=== PATIENT | male | born 1970 | race Caucasian/White ===

== ENCOUNTER 2017-11-15 10:22 | Emergency (ER) | payer BC ==
[~2017-11-15] VITALS: Ht 172.7 cm; Wt 77.1 kg
[2017-11-15] MEDS ORDERED: LIDOCAINE 2% 20 ML VIAL. IJ ONE (11:00)
[2017-11-15] MEDS ORDERED: DIPHTH,PERTUSS(ACELL),TET TOX 0.5 ML DISP.SYRIN. VAX IM ONE (11:15)
[2017-11-15] MEDS ORDERED: NEOMY/BACITR/POLYMYXIN OINT PACKET. TP ONE (11:27)
--- NOTE | 2017-11-15 11:32 | PHYS DOC ---
Past History Past Medical History: Arthritis, CAD, Other Past Surgical History: Other Alcohol Use: Rarely Drug Use: None Adult General Chief Complaint Chief Complaint: LACERATION/AVULSION HPI HPI 43-year-old male presents with left wrist laceration. The patient was working on [employer] on a job site when he had a scraper slip and lacerated his left lateral wrist. He can tell that the cut was deep, likely requiring suture so he came to the ER. He did apply direct pressure and was able to control bleeding prior to arrival. He denies any loss of sensation or movement. His range of motion is normal. The patient has never had an injury to this hand before. His tetanus is not up-to-date. He denies fever or chills. He has no other injuries. Review of Systems Review of Systems Constitutional: Denies fever or chills [] Eyes: Denies change in visual acuity, redness, or eye pain [] HENT: Denies nasal congestion or sore throat [] Respiratory: Denies cough or shortness of breath [] Cardiovascular: No additional information not addressed in HPI [] GI: Denies abdominal pain, nausea, vomiting, bloody stools or diarrhea [] : Denies dysuria or hematuria [] Musculoskeletal: Denies back pain or joint pain [] Integument: 4cm laceration of left wrist [] Neurologic: Denies headache, focal weakness or sensory changes [] Endocrine: Denies polyuria or polydipsia [] All other systems were reviewed and found to be within normal limits, except as documented in this note. Current Medications Current Medications Current Medications Medications (Trade) Dose Ordered Sig/Jeanette Start Time Stop Time Status Last Admin Dose Admin Diphtheria/ Tetanus/Acell Pertussis (Boostrix) 0.5 ml ONCE ONCE 11/15/17 11:15 11/15/17 11:16 DC 11/15/17 11:04 0.5 ML Lidocaine HCl 20 ml 1X ONCE 11/15/17 11:00 11/15/17 11:01 DC 11/15/17 11:01 20 ML Allergies Allergies Allergies Coded Allergies Type Severity Reaction Last Updated Verified No Known Drug Allergies 06/02/16 No Physical Exam Physical Exam Constitutional: Well developed, well nourished, no acute distress, non-toxic appearance. [] HENT: Normocephalic, atraumatic, bilateral external ears normal, oropharynx moist, no oral exudates, nose normal. [] Eyes: PERRLA, EOMI, conjunctiva normal, no discharge. [] Neck: Normal range of motion, no tenderness, supple, no stridor. [] Cardiovascular:Heart rate regular rhythm, no murmur [] Lungs & Thorax: Bilateral breath sounds clear to auscultation [] Abdomen: Bowel sounds normal, soft, no tenderness, no masses, no pulsatile masses. [] Skin: Worsening or R laceration of the wrist. Laceration goes through the skin and subcutaneous fat. There does not appear to be injury to the tendons or muscle. No arterial bleeding.[] Back: No tenderness, no CVA tenderness. [] Extremities: No tenderness, no cyanosis, no clubbing, ROM intact, no edema. Neurovascularly intact bilateral upper extremities.[] Neurologic: Alert and oriented X 3, normal motor function, normal sensory function, no focal deficits noted. [] Psychologic: Affect normal, judgement normal, mood normal. [] Current Patient Data Vital Signs Vital Signs Date Time Temp Pulse Resp B/P (MAP) Pulse Ox O2 Delivery O2 Flow Rate FiO2 11/15/17 10:22 98.0 72 95 EKG EKG [] Radiology/Procedures Radiology/Procedures [] Course & Med Decision Making Course & Med Decision Making Pertinent Labs and Imaging studies reviewed. (See chart for details) The patient's laceration only went through the skin is subcutaneous tissues. Do not appear to be any involvement of the muscle or tendons. No foreign bodies were seen. I was able to repair the laceration with sutures. See note below for more details. Patient in no complications. We gave him his tetanus shot. He is stable for discharge at this time. He will return in 7 days for suture removal. Respirations repair: Patient had a 4 cm linear laceration of the left lateral wrist. Verbal consent was obtained from the patient for suture repair. A timeout was performed to identify the proper location procedure. There did not appear to be involvement of the artery, nerve, tendons, or muscle. His range of motion and vascular status was intact. I anesthetized the area with 2% lidocaine, a total of 6 mL. After good anesthesia was achieved, the wound was irrigated with high-pressure saline wash. No foreign bodies were found. I then repaired the wound with 6 3-0 Ethilon sutures. There was good skin approximation. Bleeding was controlled. There were no complications. The patient tolerated the procedure well. Antibiotic ointment and a clean dressing were applied to the wound. [] Dragon Disclaimer Dragon Disclaimer This electronic medical record was generated, in whole or in part, using a voice recognition dictation system. Departure Departure: Referrals: LIDIA CABRERA MD (PCP) MARIA ANTONIA [place] DO Nov 15, 2017 11:32
[2017-11-15 11:40] VITALS: BP 136/92
== END 2017-11-15 11:35 | disposition home or self-care (01) ==
LOC: ER 10:22
DX: S61.512A Laceration without foreign body of left wrist, initial encounter (principal); I25.10 Atherosclerotic heart disease of native coronary artery without angina pectoris; M19.90 Unspecified osteoarthritis, unspecified site; W26.2XXA Contact with edge of stiff paper, initial encounter; Y93.89 Activity, other specified; Y92.89 Other specified places as the place of occurrence of the external cause; Y99.8 Other external cause status
CPT/HCPCS: 12002; 90471; 90715; 99283-25; J2001

== ENCOUNTER 2017-11-21 06:43 | Emergency (ER) | payer BC | END 2017-11-21 07:10 | disposition left against medical advice (07) | LOC: ER 06:43 | DX: S61.512D Laceration without foreign body of left wrist, subsequent encounter (principal); Z53.21 Procedure and treatment not carried out due to patient leaving prior to being seen by health care provider; X58.XXXD Exposure to other specified factors, subsequent encounter ==

== ENCOUNTER 2017-12-02 07:44 | Emergency (ER) | payer BC ==
[~2017-12-02] VITALS: Ht 180.3 cm; Wt 99.8 kg
[2017-12-02 08:10] VITALS: BP 129/96
--- NOTE | 2017-12-02 08:12 | PHYS DOC ---
Past History Past Medical History: Arthritis, CAD Past Surgical History: No Surgical History Alcohol Use: None Drug Use: None Adult General Chief Complaint Chief Complaint: WOUND RECHECK/SUTURE REMOVAL Allergies Allergies Allergies Coded Allergies Type Severity Reaction Last Updated Verified No Known Drug Allergies 06/02/16 No EKG EKG [] Radiology/Procedures Radiology/Procedures [] Course & Med Decision Making Course & Med Decision Making 47-year-old male presenting for suture removal. Patient's wound is healing well. We will remove the sutures. Follow up with PCP as needed. Dragon Disclaimer Dragon Disclaimer This electronic medical record was generated, in whole or in part, using a voice recognition dictation system. Departure Departure: Impression: Primary Impression: Encounter for assessment of wound Additional Impression: Visit for suture removal Disposition: 01 HOME, SELF-CARE Condition: STABLE Referrals: LIDIA CABRERA MD (PCP) Patient Instructions: Suture Removal-Brief Problem Qualifiers KAYODE KING MD Dec 02, 2017 08:12
== END 2017-12-02 08:20 | disposition home or self-care (01) ==
LOC: ER 07:44
DX: S61.512D Laceration without foreign body of left wrist, subsequent encounter (principal); I25.10 Atherosclerotic heart disease of native coronary artery without angina pectoris; M19.90 Unspecified osteoarthritis, unspecified site; X58.XXXD Exposure to other specified factors, subsequent encounter
CPT/HCPCS: 99282

== ENCOUNTER 2018-01-13 18:58 | Emergency (ER) | payer BC ==
[~2018-01-13] VITALS: Ht 172.7 cm; Wt 99.8 kg
[2018-01-13] MEDS ORDERED: IV NORMAL SALINE 1,000ML 1,000 ML IV SCH (19:49)
[2018-01-13] MEDS ORDERED: CONTRAST GIVEN MC PRN (20:00)
[2018-01-13 20:13] LABS: BILIRUBIN,URINE NEG (NEG); CLARITY,URINE HAZY; COLOR,URINE YELLOW; GLUCOSE,URINE NEG (NEG)
[2018-01-13 20:14] LABS: AMORPHOUS SEDIMENT,UR PRESENT /HPF; BACTERIA,URINE 0 /HPF (0-FEW); NITRITE,URINE NEG (NEG); RBC,URINE 0 /HPF (0-2); UROBILINOGEN,URINE 0.2 mg/dL (0.2 mg/dL); WBC,URINE RARE /HPF (0-4)
[2018-01-13] MEDS ORDERED: KETOROLAC 30 MG/ML VIAL. IV ONE (20:15)
[2018-01-13] MEDS ORDERED: IOHEXOL 300 MG/ML 75 ML VIAL. IV ONE (20:15)
[2018-01-13] MEDS ORDERED: ONDANSETRON PF 4 MG/2 ML VIAL. IV ONE (20:15)
[2018-01-13 20:20] LABS: BASO % 1 % (0-3); EOS # 0.2 x10^3/uL (0.0-0.7); EOS % 2 % (0-3); HEMATOCRIT 43.3 % (39.0-53.0); HEMOGLOBIN 15.1 g/dL (13.0-17.5); LYMPH # 1.7 x10^3/uL (1.0-4.8); LYMPH % 18 % (24-48); MEAN CORPUSCULAR HEMOGLOBIN 32 pg (25-35); MEAN CORPUSCULAR HGB CONC 35 g/dL (31-37); MEAN CORPUSCULAR VOLUME 93 fL (79-100); MONO # 1.1 x10^3/uL (0.0-1.1); MONO % 11 % (0-9); NEUT # 6.4 x10^3uL (1.8-7.7); NEUT % 68 % (31-73); PLATELET COUNT 207 x10^3/uL (140-400); RED BLOOD COUNT 4.67 x10^6/uL (4.30-5.70); RED CELL DISTRIBUTION WIDTH 12.6 % (11.5-14.5); WHITE BLOOD COUNT 9.5 x10^3/uL (4.0-11.0)
[2018-01-13 20:33] LABS: ALBUMIN 3.8 g/dL (3.4-5.0); ALBUMIN/GLOBULIN RATIO 1.4 (1.0-1.7); CALCIUM 8.5 mg/dL (8.5-10.1); CREATININE 1.3 mg/dL (0.7-1.3); GFR 58.7; POTASSIUM 3.8 mmol/L (3.5-5.1); TOTAL BILIRUBIN 0.2 mg/dL (0.2-1.0); TOTAL PROTEIN 6.5 g/dL (6.4-8.2)
[2018-01-13 20:40] VITALS: BP 126/76
--- NOTE | 2018-01-13 20:52 | RAD ---
PQRS Compliance statement: One or more of the following individualized dose reduction techniques were utilized for this examination: 1. Automated exposure control. 2. Adjustment of the mA and/or kV according to patient size. 3. Use of iterative reconstruction technique. Indication:Omni 300 75cc: Severe left flank pain, history of AAA for 2 years, lymes disease TECHNIQUE: CT abdomen and pelvis without and with IV contrast with multiplanar reformats. COMPARISON: None FINDINGS: Heart is normal in size. No pericardial or pleural effusion. Clear lung bases. Liver, spleen, gallbladder, pancreas, adrenals within normal limits. No nephrolithiasis or hydronephrosis. 8mm exophytic nonenhancing lesion is seen in the medial aspect of the interpolar left kidney. No enlarged retroperitoneal or pelvic adenopathy. No free pelvic fluid or ascites. No bowel obstruction. Normal appendix. Urinary bladder within normal limits. The prostate and seminal vesicles show no large mass. There is no aneurysmal dilation of the abdominal aorta. The celiac axis, splenic artery, left gastric artery, common hepatic artery, SMA, bilateral renal arteries, ENEDELIA, bilateral common iliac arteries, bilateral external/internal iliac arteries, bilateral [employer] are patent. There is anterior wedge-shaped compression deformity of the L1 vertebral body with approximately loss of 75 percent of the body height with mild retropulsion in the spinal canal. Grade 1 anterolisthesis of L3 over L4. No suspicious bony lesion. Bilateral L3 pars defect. IMPRESSION: 1. No nephrolithiasis. 2. No abdominal aortic aneurysm. 3. Compression deformity of L1 vertebral body with approximately loss of anterior percent of the anterior body height with minimal retropulsion in the spinal canal of the posterior margin of the vertebral body. Electronically signed by: Ramon Cardenas DO (01/13/2018 8:49 PM) [facility]
[2018-01-13] MEDS ORDERED: MELO15TA23 PO (21:14)
[2018-01-13] MEDS ORDERED: ORPH-16 PO (21:14)
--- NOTE | 2018-01-13 21:14 | PHYS DOC ---
Past History Past Medical History: Arthritis, CAD, High Cholesterol, Hypertension, Other Past Medical History AAA being followed by imaging Past Surgical History: No Surgical History Alcohol Use: None Drug Use: None Adult General Chief Complaint Chief Complaint: FLANK PAIN HPI HPI Patient is a 47 year old [male who presents with left flank pain. This started 2 days ago when he was carrying a 50 pound bag of the period has not gotten any better with patient's narcotic pain medicine prescribed for other pain for conditions. Patient denies any loss of bowel or bladder control. Denies any fever. Denies any dysuria or hematuria. Patient is being followed for a known abdominal aortic aneurysm by imaging with his last imaging being in September 2017. Movement seems to make the discomfort worse. Holding still seems to make it better but does not fully resolve it. Reports the pain as being moderate to severe in intensity. Describes it as sharp discomfort. There is no radiation. Review of Systems Review of Systems Constitutional: Denies fever or chills [] Eyes: Denies change in visual acuity, redness, or eye pain [] HENT: Denies nasal congestion or sore throat [] Respiratory: Denies cough or shortness of breath [] Cardiovascular: No chest pain or palpitations[] GI: Denies abdominal pain, nausea, vomiting, bloody stools or diarrhea [] : Denies dysuria or hematuria [] Musculoskeletal: Denies back pain or joint pain [] Integument: Denies rash or skin lesions [] Neurologic: Denies headache, focal weakness or sensory changes [] Endocrine: Denies polyuria or polydipsia [] All other systems were reviewed and found to be within normal limits, except as documented in this note. Current Medications Current Medications Current Medications Medications (Trade) Dose Ordered Sig/Jeanette Start Time Stop Time Status Last Admin Dose Admin Fentanyl Citrate (Fentanyl 2ml Vial) 25 mcg 1X ONCE 01/13/18 20:15 01/13/18 20:16 DC 01/13/18 20:05 25 MCG Info (Do NOT chart on this entry -- for MONITORING) 1 each PRN DAILY PRN 01/13/18 20:00 01/15/18 19:59 Iohexol (Omnipaque 300 Mg/ml) 75 ml 1X ONCE 01/13/18 20:15 01/13/18 20:16 DC 01/13/18 20:18 75 ML Ketorolac Tromethamine (Toradol 30mg Vial) 30 mg 1X ONCE 01/13/18 20:15 01/13/18 20:16 DC 01/13/18 20:06 30 MG Ondansetron HCl (Zofran) 4 mg 1X ONCE 01/13/18 20:15 01/13/18 20:16 DC 01/13/18 20:05 4 MG Sodium Chloride 1,000 ml @ 1,000 mls/hr Q1H 01/13/18 19:49 01/13/18 20:48 DC 01/13/18 20:05 1,000 MLS/HR Allergies Allergies Allergies Coded Allergies Type Severity Reaction Last Updated Verified No Known Drug Allergies 06/02/16 No Physical Exam Physical Exam Constitutional: Well developed, well nourished, in moderate distress, non-toxic appearance. [] HENT: Normocephalic, atraumatic, bilateral external ears normal, oropharynx moist, no oral exudates, nose normal. [] Eyes: PERRLA, EOMI, conjunctiva normal, no discharge. [] Neck: Normal range of motion, no tenderness, supple, no stridor. [] Cardiovascular:Heart rate regular rhythm, no murmur [] Lungs & Thorax: Bilateral breath sounds clear to auscultation [] Abdomen: Bowel sounds normal, soft, no tenderness, no masses, no pulsatile masses. [] Skin: Warm, dry, no erythema, no rash. [] Back: No tenderness, left CVA and lower flank tenderness. No bruising. [] Extremities: No tenderness, no cyanosis, no clubbing, ROM intact, no edema. [] Neurologic: Alert and oriented X 3, normal motor function, normal sensory function, no focal deficits noted. Normal gait.[] Psychologic: Affect normal, judgement normal, mood normal. [] Current Patient Data Vital Signs Vital Signs Date Time Temp Pulse Resp B/P (MAP) Pulse Ox O2 Delivery O2 Flow Rate FiO2 01/13/18 20:05 18 97 Room Air 01/13/18 19:25 98.3 86 Lab Results Laboratory Tests Test 01/13/18 19:32 01/13/18 19:56 Urine Collection Type Unknown Urine Color Yellow Urine Clarity Hazy Urine pH 7.0 Urine Specific [place] 1.020 Urine Protein Neg (NEG-TRACE) Urine Glucose (UA) Neg mg/dL (NEG) Urine Ketones (Stick) Neg mg/dL (NEG) Urine Blood Neg (NEG) Urine Nitrite Neg (NEG) Urine Bilirubin Neg (NEG) Urine Urobilinogen Dipstick 0.2 mg/dL (0.2 mg/dL) Urine Leukocyte Esterase Neg (NEG) Urine RBC 0 /HPF (0-2) Urine WBC Rare /HPF (0-4) Urine Squamous Epithelial Cells None /LPF Urine Amorphous Sediment Present /HPF Urine Bacteria 0 /HPF (0-FEW) White Blood Count 9.5 x10^3/uL (4.0-11.0) Red Blood Count 4.67 x10^6/uL (4.30-5.70) Hemoglobin 15.1 g/dL (13.0-17.5) Hematocrit 43.3 % (39.0-53.0) Mean Corpuscular Volume 93 fL (79-100) Mean Corpuscular Hemoglobin 32 pg (25-35) Mean Corpuscular Hemoglobin Concent 35 g/dL (31-37) Red Cell Distribution Width 12.6 % (11.5-14.5) Platelet Count 207 x10^3/uL (140-400) Neutrophils (%) (Auto) 68 % (31-73) Lymphocytes (%) (Auto) 18 % (24-48) L Monocytes (%) (Auto) 11 % (0-9) H Eosinophils (%) (Auto) 2 % (0-3) Basophils (%) (Auto) 1 % (0-3) Neutrophils # (Auto) 6.4 x10^3uL (1.8-7.7) Lymphocytes # (Auto) 1.7 x10^3/uL (1.0-4.8) Monocytes # (Auto) 1.1 x10^3/uL (0.0-1.1) Eosinophils # (Auto) 0.2 x10^3/uL (0.0-0.7) Basophils # (Auto) 0.0 x10^3/uL (0.0-0.2) Sodium Level 139 mmol/L (136-145) Potassium Level 3.8 mmol/L (3.5-5.1) Chloride Level 103 mmol/L (98-107) Carbon Dioxide Level 35 mmol/L (21-32) H Anion Gap 1 (6-14) L Blood Urea Nitrogen 19 mg/dL (8-26) Creatinine 1.3 mg/dL (0.7-1.3) Estimated GFR (Cockcroft-Gault) 58.7 BUN/Creatinine Ratio 15 (6-20) Glucose Level 107 mg/dL (70-99) H Calcium Level 8.5 mg/dL (8.5-10.1) Total Bilirubin 0.2 mg/dL (0.2-1.0) Aspartate Amino Transferase (AST) 13 U/L (15-37) L Alanine Aminotransferase (ALT) 30 U/L (16-63) Alkaline Phosphatase 40 U/L (46-116) L Total Protein 6.5 g/dL (6.4-8.2) Albumin 3.8 g/dL (3.4-5.0) Albumin/Globulin Ratio 1.4 (1.0-1.7) Lipase 65 U/L (73-393) L EKG EKG [] Radiology/Procedures Radiology/Procedures CT scan of the abdomen and pelvis shows no nephrolithiasis. No abdominal aortic aneurysm. There is compression deformity of the L1 vertebral body with approximately blank loss of anterior percent of the anterior body height with minimal retropulsion the spinal canal the posterior margin of the vertebral body. There is no prior CT scan for comparison[] Course & Med Decision Making Course & Med Decision Making Pertinent Labs and Imaging studies reviewed. (See chart for details) ED course: Patient arrived, was placed in bed, tolerated exam well. Patient was transported to and from CT scan with any complications. Patient was given IV pain medication which didn't improve his discomfort. After lab and imaging results were back, discussed the findings with the patient and his family who voiced understanding. All questions were answered. Medical decision making: There is no evidence of a dissecting abdominal aortic aneurysm, no evidence of significant intra-abdominal pathology. No evidence of an obstructing stone. No evidence of pyelonephritis. Believe this to be more of a muscles drain mechanism given that he was carrying a 50 pound weight when this started, despite his protestations that this is what he does almost daily.] Dragon Disclaimer Dragon Disclaimer This electronic medical record was generated, in whole or in part, using a voice recognition dictation system. Departure Departure: Impression: Primary Impression: Acute left flank pain Disposition: HOME, SELF-CARE Condition: GOOD Referrals: LIDIA CABRERA MD (PCP) Follow-up with your regular doctor in 2 days Patient Instructions: Flank Pain Additional Instructions: Follow-up with your regular doctor. Take medication as prescribed. Return to the ER if any concerns. Scripts Meloxicam (MELOXICAM) 15 Mg Tablet 1 TAB PO DAILY, #30 TAB Prov: JOSE RAMESH DO 01/13/18 Orphenadrine Citrate (ORPHENADRINE CITRATE) 100 Mg Tablet.er 100 MG PO BID, #20 TAB.SR Prov: JOSE RAMESH DO 01/13/18 JOSE RAMESH DO Jan 13, 2018 21:14
== END 2018-01-13 21:30 | disposition home or self-care (01) ==
LOC: ER 18:58
DX: R10.9 Unspecified abdominal pain (principal); M19.90 Unspecified osteoarthritis, unspecified site; I25.10 Atherosclerotic heart disease of native coronary artery without angina pectoris; E78.00 Pure hypercholesterolemia, unspecified; I10 Essential (primary) hypertension; I71.4 Abdominal aortic aneurysm, without rupture
CPT/HCPCS: 36415; 74178; 80053; 81001; 83690; 85025; 96374; 96375; 99285; J1885; J2405; J3010; Q9967; J7030

== ENCOUNTER 2018-07-24 16:05 | Emergency (ER) | payer BC ==
[~2018-07-24] VITALS: Ht 172.7 cm; Wt 98.9 kg
[~2018-07-24 16:05] MED LIST: KETOROLAC 30 MG/ML VIAL. IV ONE; MELO15TA23 PO; ORPH-16 PO
[2018-07-24] MEDS ORDERED: IV NORMAL SALINE 1,000ML 1,000 ML IV SCH (16:23)
[2018-07-24 16:38] LABS: BASO % 0 % (0-3); EOS # 0.1 x10^3/uL (0.0-0.7); EOS % 1 % (0-3); HEMATOCRIT 49.8 % (39.0-53.0); HEMOGLOBIN 17.2 g/dL (13.0-17.5); LYMPH # 0.4 x10^3/uL (1.0-4.8); LYMPH % 4 % (24-48); MEAN CORPUSCULAR HEMOGLOBIN 31 pg (25-35); MEAN CORPUSCULAR HGB CONC 35 g/dL (31-37); MEAN CORPUSCULAR VOLUME 91 fL (79-100); MONO # 0.7 x10^3/uL (0.0-1.1); MONO % 7 % (0-9); NEUT # 8.4 x10^3uL (1.8-7.7); NEUT % 88 % (31-73); PLATELET COUNT 180 x10^3/uL (140-400); RED BLOOD COUNT 5.49 x10^6/uL (4.30-5.70); RED CELL DISTRIBUTION WIDTH 13.7 % (11.5-14.5); WHITE BLOOD COUNT 9.6 x10^3/uL (4.0-11.0)
[2018-07-24 16:53] LABS: ALBUMIN 3.1 g/dL (3.4-5.0); CALCIUM 8.1 mg/dL (8.5-10.1); CREATININE 1.4 mg/dL (0.7-1.3); GFR 53.9; POTASSIUM 3.6 mmol/L (3.5-5.1); TOTAL BILIRUBIN 0.7 mg/dL (0.2-1.0); TOTAL PROTEIN 6.1 g/dL (6.4-8.2)
[2018-07-24] MEDS ORDERED: METOCLOPRAMIDE HCL 10 MG/2 ML VIAL. IV ONE (17:00)
[2018-07-24] MEDS ORDERED: MORPHINE SULFATE 4 MG/ML DISP.SYRIN. IV/SQ PRN (17:00)
[2018-07-24] MEDS ORDERED: SUMAtriptan SUCC 6 MG/0.5 ML VIAL SQ ONE (17:00)
[2018-07-24] MEDS ORDERED: diphenhydrAMINE 50 MG/ML VIAL IVP ONE (17:00)
[2018-07-24] MEDS ORDERED: IV NORMAL SALINE 1,000ML 1,000 ML IV ONE (17:15)
--- NOTE | 2018-07-24 17:24 | PHYS DOC ---
Past History Past Medical History: Arthritis, CAD, High Cholesterol, Hypertension, Other Past Surgical History: No Surgical History Alcohol Use: None Drug Use: None Adult General Chief Complaint Chief Complaint: NAUSEA/VOMITING/DIARRHEA HPI HPI Patient is a 47-year-old male who presents with complaint of nausea with vomiting and diarrhea that started at about 3:00 this morning. Patient also indicates that he has a migraine headache that started around the same period of time. He rates his pain to be a 9 out of 10. He describes pain as being throbbing in nature. He does complain of photophobia as well as phonophobia. He denies any chest pain or shortness of breath. Patient states that since onset of symptoms he has not been able to keep anything down to include clear liquids or medications. Review of Systems Review of Systems Constitutional: Denies fever or chills [] Eyes: Denies change in visual acuity, redness, or eye pain [] Respiratory: Denies cough or shortness of breath [] Cardiovascular: No additional information not addressed in HPI [] GI: Denies abdominal pain. Positive nausea with vomiting and diarrhea [] Neurologic: Positive headache without focal weakness or sensory changes [] All other systems were reviewed and found to be within normal limits, except as documented in this note. Current Medications Current Medications Current Medications Medications (Trade) Dose Ordered Sig/[facility] Start Time Stop Time Status Last Admin Dose Admin Diphenhydramine HCl (Benadryl) 25 mg 1X ONCE 07/24/18 17:00 07/24/18 17:01 DC 07/24/18 16:35 25 MG Ketorolac Tromethamine (Toradol 30mg Vial) 30 mg 1X ONCE 07/24/18 15:30 07/24/18 17:10 DC 07/24/18 17:14 30 MG Metoclopramide HCl (Reglan Vial) 10 mg 1X ONCE 07/24/18 17:00 07/24/18 17:01 DC 07/24/18 16:34 10 MG Morphine Sulfate (Morphine 4mg Syringe) 4 mg PRN Q15MIN PRN 07/24/18 17:00 07/25/18 16:59 07/24/18 16:35 4 MG Sodium Chloride 1,000 ml @ 1,000 mls/hr 1X ONCE 07/24/18 17:15 07/24/18 18:14 07/24/18 17:14 1,000 MLS/HR Sumatriptan Succinate (Imitrex) 6 mg 1X ONCE 07/24/18 17:00 07/24/18 17:01 DC 07/24/18 16:34 6 MG Allergies Allergies Allergies Coded Allergies Type Severity Reaction Last Updated Verified No Known Drug Allergies 06/02/16 No Physical Exam Physical Exam Constitutional: Well developed, well nourished, in mild distress, non-toxic appearance. [] HENT: Normocephalic, atraumatic, bilateral external ears normal, oropharynx moist, no oral exudates, nose normal. [] Eyes: PERRLA, EOMI, conjunctiva normal, no discharge. [] Neck: Normal range of motion, no tenderness, supple, no stridor. [] Cardiovascular: Tachycardic rate with regular rhythm[] Lungs & Thorax: Bilateral breath sounds clear to auscultation [] Abdomen: Bowel sounds normal, soft, no tenderness. [] Skin: Warm, dry, no erythema, no rash. [] Extremities: No tenderness, no cyanosis, no clubbing, ROM intact, no edema. [] Neurologic: Alert and oriented X 3, no focal deficits noted. [] Current Patient Data Vital Signs Vital Signs Date Time Temp Pulse Resp B/P (MAP) Pulse Ox O2 Delivery O2 Flow Rate FiO2 07/24/18 16:35 18 99 Room Air 07/24/18 16:17 98.9 66 Lab Results Laboratory Tests Test 07/24/18 16:21 White Blood Count 9.6 x10^3/uL (4.0-11.0) Red Blood Count 5.49 x10^6/uL (4.30-5.70) Hemoglobin 17.2 g/dL (13.0-17.5) Hematocrit 49.8 % (39.0-53.0) Mean Corpuscular Volume 91 fL (79-100) Mean Corpuscular Hemoglobin 31 pg (25-35) Mean Corpuscular Hemoglobin Concent 35 g/dL (31-37) Red Cell Distribution Width 13.7 % (11.5-14.5) Platelet Count 180 x10^3/uL (140-400) Neutrophils (%) (Auto) 88 % (31-73) H Lymphocytes (%) (Auto) 4 % (24-48) L Monocytes (%) (Auto) 7 % (0-9) Eosinophils (%) (Auto) 1 % (0-3) Basophils (%) (Auto) 0 % (0-3) Neutrophils # (Auto) 8.4 x10^3uL (1.8-7.7) H Lymphocytes # (Auto) 0.4 x10^3/uL (1.0-4.8) L Monocytes # (Auto) 0.7 x10^3/uL (0.0-1.1) Eosinophils # (Auto) 0.1 x10^3/uL (0.0-0.7) Basophils # (Auto) 0.0 x10^3/uL (0.0-0.2) Sodium Level 140 mmol/L (136-145) Potassium Level 3.6 mmol/L (3.5-5.1) Chloride Level 102 mmol/L (98-107) Carbon Dioxide Level 33 mmol/L (21-32) H Anion Gap 5 (6-14) L Blood Urea Nitrogen 20 mg/dL (8-26) Creatinine 1.4 mg/dL (0.7-1.3) H Estimated GFR (Cockcroft-Gault) 53.9 BUN/Creatinine Ratio 14 (6-20) Glucose Level 131 mg/dL (70-99) H Calcium Level 8.1 mg/dL (8.5-10.1) L Total Bilirubin 0.7 mg/dL (0.2-1.0) Aspartate Amino Transferase (AST) 17 U/L (15-37) Alanine Aminotransferase (ALT) 33 U/L (16-63) Alkaline Phosphatase 44 U/L (46-116) L Total Protein 6.1 g/dL (6.4-8.2) L Albumin 3.1 g/dL (3.4-5.0) L Albumin/Globulin Ratio 1.0 (1.0-1.7) EKG EKG [] Radiology/Procedures Radiology/Procedures [] Course & Med Decision Making Course & Med Decision Making Pertinent Labs and Imaging studies reviewed. (See chart for details) [] Dragon Disclaimer Dragon Disclaimer This electronic medical record was generated, in whole or in part, using a voice recognition dictation system. Departure Departure: Impression: Primary Impression: Migraine Additional Impression: Vomiting and diarrhea Disposition: 01 HOME, SELF-CARE Condition: STABLE Referrals: LIDIA CABRERA MD (PCP) Patient Instructions: Diarrhea, Migraine Headache, Nausea and Vomiting Scripts Diphenoxylate Hcl/Atropine (LOMOTIL TABLET) 1 Each Tablet 1 TAB PO TID PRN for DIARRHEA, #15 TAB Prov: MATTHEW MAS Jr. DO 07/24/18 Ondansetron Hcl (ZOFRAN) 4 Mg Tablet 4 MG PO Q6HRS PRN for NAUSEA, #12 TAB Prov: MATTHEW MAS Jr. DO 07/24/18 Problem Qualifiers Primary Impression: Migraine Migraine type: without aura Status migrainosus presence: without status migrainosus Intractability: not intractable Qualified Codes: G43.009 - Migraine without aura, not intractable, without status migrainosus MATTHEW MAS Jr. DO July 24, 2018 17:24
[2018-07-24] MEDS ORDERED: ONDA4TAB7 PO (18:03)
[2018-07-24] MEDS ORDERED: DIPH1TAB PO (18:03)
[2018-07-24 18:11] VITALS: BP 132/76
== END 2018-07-24 18:10 | disposition home or self-care (01) ==
LOC: ER 16:05
DX: G43.009 Migraine without aura, not intractable, without status migrainosus (principal); R11.2 Nausea with vomiting, unspecified; R19.7 Diarrhea, unspecified; M19.90 Unspecified osteoarthritis, unspecified site; I25.10 Atherosclerotic heart disease of native coronary artery without angina pectoris; E78.00 Pure hypercholesterolemia, unspecified; I10 Essential (primary) hypertension
CPT/HCPCS: 36415; 80053; 85025; 96361; 96372; 96374; 96375; 99284; J1200; J1885; J2270; J2765; J3030; J7030

== ENCOUNTER 2019-06-20 09:20 | Emergency (ER) | payer BC ==
[~2019-06-20] VITALS: Ht 172.7 cm; Wt 95.8 kg
[~2019-06-20 09:20] MED LIST changes: +DIPH1TAB PO; -KETOROLAC 30 MG/ML VIAL. IV ONE; +ONDA4TAB7 PO
[2019-06-20] MEDS ORDERED: IV NORMAL SALINE 1,000ML 1,000 ML IV SCH (09:33)
--- NOTE | 2019-06-20 09:48 | PHYS DOC ---
Past History Past Medical History: Arthritis, CAD, High Cholesterol, Hypertension, Other Past Surgical History: No Surgical History Alcohol Use: None Drug Use: None Adult General Chief Complaint Chief Complaint: CHEST PAIN HPI HPI 48-year-old male presents with right-sided chest pain that radiates into his shoulders. He further has some arm and hand tingling on both sides, but worse on the right. He describes the chest pain as a sharp sensation worse with deep breathing. Patient woke up this morning with the pain. It woke him from his sleep around 2 AM. He has had pain since then. The patient had some mild epigastric pain intermittently yesterday. Exertion does not seem to make it better or worse. He does not feel short of breath it just hurts to take a deep breath. He denies diaphoresis. The patient is on chronic pain medication and anxiety medication. No history of heart attack or stents. He does admit there is 1 vessel that they have been following. Denies fever chills. Review of Systems Review of Systems Constitutional: Denies fever or chills [] Eyes: Denies change in visual acuity, redness, or eye pain [] HENT: Denies nasal congestion or sore throat [] Respiratory: Denies cough or shortness of breath [] Cardiovascular: No additional information not addressed in HPI [] GI: Denies abdominal pain, nausea, vomiting, bloody stools or diarrhea [] : Denies dysuria or hematuria [] Musculoskeletal: Denies back pain or joint pain [] Integument: Denies rash or skin lesions [] Neurologic: Denies headache, focal weakness or sensory changes [] Endocrine: Denies polyuria or polydipsia [] All other systems were reviewed and found to be within normal limits, except as documented in this note. Current Medications Current Medications Current Medications Medications (Trade) Dose Ordered Sig/Jeanette Start Time Stop Time Status Last Admin Dose Admin Aspirin (Children'S Aspirin) 324 mg 1X ONCE 06/20/19 10:00 06/20/19 10:01 Morphine Sulfate (Morphine 4mg Syringe) 4 mg 1X ONCE 06/20/19 09:45 06/20/19 09:46 UNV Sodium Chloride 1,000 ml @ 1,000 mls/hr Q1H 06/20/19 09:33 06/20/19 10:32 Allergies Allergies Allergies Coded Allergies Type Severity Reaction Last Updated Verified No Known Drug Allergies 06/02/16 No Physical Exam Physical Exam Constitutional: Well developed, well nourished, mild acute distress, non-toxic appearance. [] HENT: Normocephalic, atraumatic, bilateral external ears normal, oropharynx moist, no oral exudates, nose normal. [] Eyes: PERRLA, EOMI, conjunctiva normal, no discharge. [] Neck: Normal range of motion, no tenderness, supple, no stridor. [] Cardiovascular: Heart rate 96, regular rhythm, no murmur [] Lungs & Thorax: Bilateral breath sounds clear to auscultation [] Abdomen: Bowel sounds normal, soft, no tenderness, no masses, no pulsatile masses. [] Skin: Warm, dry, no erythema, no rash. [] Back: No tenderness, no CVA tenderness. [] Extremities: No tenderness, no cyanosis, no clubbing, ROM intact, no edema. [] Neurologic: Alert and oriented X 3, normal motor function, normal sensory function, no focal deficits noted. [] Psychologic: Affect normal, judgement normal, mood anxious. [] EKG EKG Sinus tachycardia, rate 102, normal axis, no ST elevations or depressions. [] Radiology/Procedures Radiology/Procedures [] Impressions: Single view chest dated 06/20/2019. Comparison made to 06/02/2016. CLINICAL INDICATION: Chest pain. FINDINGS: Single upright portable exam performed. Study is limited due to low lung volumes. Heart and mediastinal contours are stable. There is some prominent linear markings at both lung bases. No consolidation or pleural effusion. No pneumothorax. IMPRESSION: Limited exam due to low lung volumes. Prominent linear markings are likely related to vascular crowding and/or atelectasis. No apparent focal pneumonia. Electronically signed by: Luis Felipe Cifuentes MD (06/20/2019 9:59 AM) [facility] [place] DICTATED AND SIGNED BY: LUIS FELIPE CIFUENTES MD DATE: 06/20/19 0959 CC: MARIA ANTONIA NJ DO; LIDIA CABRERA MD ~ Course & Med Decision Making Course & Med Decision Making Pertinent Labs and Imaging studies reviewed. (See chart for details) The patient's chest x-ray is negative for pneumonia. His labs are unremarkable. His troponin is negative. We did give him aspirin on arrival. I believe his chest pain appears to be musculoskeletal or related to his chronic pain syndrome. He does report chronic Lyme disease and has medications that would suggest such. He is stable for discharge at this time. [] Dragon Disclaimer Dragon Disclaimer This electronic medical record was generated, in whole or in part, using a voice recognition dictation system. The HEART Score for CP Pts HEART Score for Chest Pain: HEART Score for Chest Pain Response (Comments) Value History Slighlty/Non-Suspicious 0 ECG Normal 0 Age >45 - < 65 1 Risk Factors 1 or 2 Risk Factors 1 Troponin < Normal Limit 0 Total 2 Risk Factors: Risk Factors: DM, Current or recent (<one month) smoker, HTN, HLP, family history of CAD, obesity. Risk Scores: Score 0 - 3: 2.5% MACE over next 6 weeks - Discharge Home Score 4 - 6: 20.3% MACE over next 6 weeks - Admit for Clinical Observation Score 7 - 10: 72.7% MACE over next 6 weeks - Early Invasive Strategies Departure Departure: Impression: Primary Impression: Chest wall pain Disposition: HOME, SELF-CARE Condition: STABLE Referrals: LIDIA CABRERA MD (PCP) Patient Instructions: Chest Wall Pain, [id number] MARIA ANTONIA NJ DO Jun 20, 2019 09:48
[2019-06-20 09:53] LABS: BASO % 0 % (0-3); EOS # 0.2 x10^3/uL (0.0-0.7); EOS % 2 % (0-3); HEMATOCRIT 43.7 % (39.0-53.0); HEMOGLOBIN 14.7 g/dL (13.0-17.5); LYMPH # 1.9 x10^3/uL (1.0-4.8); LYMPH % 19 % (24-48); MEAN CORPUSCULAR HEMOGLOBIN 31 pg (25-35); MEAN CORPUSCULAR HGB CONC 34 g/dL (31-37); MEAN CORPUSCULAR VOLUME 93 fL (79-100); MONO % 11 % (0-9); NEUT # 6.5 x10^3uL (1.8-7.7); NEUT % 68 % (31-73); PLATELET COUNT 180 x10^3/uL (140-400); RED BLOOD COUNT 4.69 x10^6/uL (4.30-5.70); RED CELL DISTRIBUTION WIDTH 13.5 % (11.5-14.5); WHITE BLOOD COUNT 9.6 x10^3/uL (4.0-11.0)
[2019-06-20] MEDS ORDERED: ASPIRIN 81 MG TAB.CHEW PO ONE (10:00)
[2019-06-20] MEDS ORDERED: MORPHINE SULFATE 4 MG/ML DISP.SYRIN. IV ONE (10:00)
--- NOTE | 2019-06-20 10:02 | RAD ---
Single view chest dated 06/20/2019. Comparison made to 06/02/2016. CLINICAL INDICATION: Chest pain. FINDINGS: Single upright portable exam performed. Study is limited due to low lung volumes. Heart and mediastinal contours are stable. There is some prominent linear markings at both lung bases. No consolidation or pleural effusion. No pneumothorax. IMPRESSION: Limited exam due to low lung volumes. Prominent linear markings are likely related to vascular crowding and/or atelectasis. No apparent focal pneumonia. Electronically signed by: Luis Felipe Cifuentes MD (06/20/2019 9:59 AM) [facility] [place]
[2019-06-20 10:04] LABS: CALCIUM 8.7 mg/dL (8.5-10.1); GFR 79.1; POTASSIUM 3.5 mmol/L (3.5-5.1)
[2019-06-20 10:18] LABS: ALBUMIN 3.5 g/dL (3.4-5.0); ALBUMIN/GLOBULIN RATIO 1.2 (1.0-1.7); TOTAL BILIRUBIN 0.5 mg/dL (0.2-1.0); TOTAL PROTEIN 6.4 g/dL (6.4-8.2)
[2019-06-20 10:28] VITALS: BP 131/89
[2019-06-20] MEDS ORDERED: diphenhydrAMINE 50 MG/ML VIAL IVP ONE (11:00)
[2019-06-20] MEDS ORDERED: METOCLOPRAMIDE HCL 10 MG/2 ML VIAL. IVP ONE (11:00)
[2019-06-20] MEDS ORDERED: KETOROLAC 30 MG/ML VIAL. IVP ONE (11:00)
--- NOTE | 2019-06-21 06:03 | EKG ---
[address] [address] Test Date: 2019-06-20 Test Time: 09:34:07 Pat Name: ROBB CASTANEDARamyAutsyn Department: Room: Gender: M Computer Specialist: : [id number] Requested By: MARIA ANTONIA [place] Order Number: [id number] Reading MD: Measurements Intervals Jonancy Rate: 102 P: -38 NV: 108 QRS: -10 QRSD: 88 T: -1 QT: 348 QTc: 458 Interpretive Statements SINUS TACHYCARDIA LEFTWARD AXIS QRS(T) CONTOUR ABNORMALITY CONSIDER ANTEROSEPTAL MYOCARDIAL DAMAGE POSSIBLY ABNORMAL ECG RI6.01 No previous ECG available for comparison
== END 2019-06-20 11:15 | disposition home or self-care (01) ==
LOC: ER 09:20
DX: R07.89 Other chest pain (principal); R10.13 Epigastric pain; M19.90 Unspecified osteoarthritis, unspecified site; I25.10 Atherosclerotic heart disease of native coronary artery without angina pectoris; E78.00 Pure hypercholesterolemia, unspecified; I10 Essential (primary) hypertension
CPT/HCPCS: 36415; 71045; 80053; 83880; 84484; 85025; 93005; 99285; J7030